=== PATIENT | female | born 1985 | race Caucasian/White ===

== ENCOUNTER 2017-05-05 20:40 | Inpatient (IN) ==
[2017-05-05 21:25] LABS: Bilirubin,Urine Negative (Negative); Blood,Urine Negative (Negative); Clarity,Urine Clear (Clear); Color,Urine Yellow (Yellow); Glucose,Urine (UA) >=1000 mg/dL (Normal); Ketones,Urine 40 mg/dL (Negative); Leukocyte Esterase,Urine Negative (Negative); Nitrite,Urine Negative (Negative); Protein,Urine Negative (Neg-Trace); Specific Gravity,Urine > 1.030 (1.010-1.025); Urobilinogen,Urine Normal (Normal)
[2017-05-05 21:25] LABS: Basophils % 0.1 %; Eosinophils % 0.1 %; Hematocrit 42.8 % (35.3-44.9); Hemoglobin 14.7 g/dL (11.5-15.4); Immature Granulocytes % 0.4 % (0-4); Lymphocytes # 2.3 K/mcL (0.6-4.6); Lymphocytes % 16.8 %; Mean Corpuscular HGB Conc 34.3 g/dL (31.6-35.5); Mean Corpuscular Hemoglobin 26.7 pg (28.0-33.3); Mean Corpuscular Volume 77.8 fL (83.0-100.0); Mean Platelet Volume 10.8 fL (9.4-12.4); Monocytes # 0.6 K/mcL (0.0-1.3); Monocytes % 4.5 %; Neutrophils # 10.8 K/mcL (1.6-8.9); Platelet Count 329 K/mcL (140-400); Red Cell Distribution Width 13.4 % (11.5-14.5); Segmented Neutrophils % 78.1 %
[2017-05-05 21:39] LABS: Alanine Aminotransferase 24 Units/L (0-55); Albumin 4.2 g/dL (3.5-5.0); Albumin/Globulin Ratio 1.3 (1.1-2.2); Alkaline Phosphatase 144 Units/L (38-126); Aspartate Amino Transferase 11 Units/L (5-34); BUN/Creatinine Ratio 18 (6-26); Bilirubin,Direct 0.2 mg/dL (0.0-0.5); Bilirubin,Indirect 0.5 mg/dL (0.0-1.2); Bilirubin,Total 0.7 mg/dL (0.2-1.2); Blood Urea Nitrogen 21 mg/dL (7-20); Calcium 10.2 mg/dL (8.6-10.8); Carbon Dioxide 19 mEq/L (19-29); Chloride 95 mEq/L (98-109); Globulin 3.2 g/dL (2.4-3.5); Lipase 17 Units/L (8-78); Osmolality,Calculated 309 (280-300); Potassium 4.2 mEq/L (3.5-4.5); Sodium 131 mEq/L (136-145); Total Protein 7.4 g/dL (6.0-8.3); eGFR For African Americans > 60 (> 60); eGFR For Non-African Americans 53 (> 60)
[2017-05-05 21:45] LABS: Glucose 712 mg/dL (70-99)
[2017-05-05] MEDS ORDERED: 0.9 % Sodium Chloride 1,000 ML IVC SCH (22:15)
[2017-05-05 22:51] LABS: VBG HCO3 19.8 mEq/L (21-27); VBG PH 7.36 pH Units (7.32-7.42)
--- NOTE | 2017-05-05 23:20 | Emergency Department Note ---
Disposition Clinical Impression: Urticaria, Hidradenitis DKA (diabetic ketoacidoses) Qualifiers: Diabetes mellitus type: due to underlying condition Diabetes mellitus complication detail: without coma Qualified Code(s): E08.10 - Diabetes mellitus due to underlying condition with ketoacidosis without coma Disposition: Admitted As Inpatient Condition: Good Time of Disposition: 05:28 General Adult HPI - General Chief complaint: ED General Medical Stated complaint: rash all over,heaviness on chest,cough,vomiting Time Seen by Provider: 05/05/17 22:12 Source: patient Limitations: no limitations Nursing Notes Reviewed: Yes Vital Signs Reviewed: Yes - History of Present Illness Pain Scale: 5 - Related Data Home Medications Medication Instructions Recorded Confirmed Ascorbic Acid/Vitamin E/Biotin 1 each PO DAILY 12/25/16 12/25/16 [Hair Skin Nails-Biotin Gummies] Biotin 1 mg PO DAILY 12/25/16 12/25/16 Melatonin 5 mg PO HS 12/25/16 12/25/16 Previous Rx's Medication Instructions Recorded Docusate [Colace] 100 mg PO BID #30 capsule 12/25/16 OxyCODONE/APAP 5/325 [Percocet 1 each PO Q4HR PRN #30 tablet 12/25/16 5/325 MG] Clindamycin [Cleocin] 450 mg PO TID #21 capsule 03/26/17 Clindamycin [Cleocin] 450 mg PO TID 7 Days 03/26/17 Cephalexin [Keflex] 500 mg PO QID #40 capsule 05/01/17 Mupirocin [Bactroban Oint] 1 appl TP BID #1 tube 05/01/17 Sulfamethoxazole/Trimeth DS 1 each PO BID #20 tablet 05/01/17 [Bactrim DS] Clindamycin [Cleocin] 300 mg PO Q6HR #56 capsule 05/04/17 Ondansetron ODT [Zofran ODT] 4 mg SL Q6HR PRN #14 tab.rapdis 05/04/17 predniSONE [PredniSONE] 60 mg PO DAILY #15 tablet 05/04/17 Allergies Allergy/AdvReac Type Severity Reaction Status Date / Time sulfamethoxazole Allergy Severe Rash Verified 05/06/17 05:05 [From Bactrim] trimethoprim [From Bactrim] Allergy Severe Rash Verified 05/06/17 05:05 bee venom protein (honey bee) Allergy See Verified 05/04/17 12:47 Comments tramadol AdvReac Vomiting Verified 05/04/17 12:47 All systems ED: reviewed and negative except as stated. Constitutional: Denies: fever, chills ENT ED: Denies: throat pain, congestion Cardiovascular: Denies: chest pain, palpitations, syncope Respiratory: Reports: wheezes. Denies: cough, dyspnea Gastrointestinal: Reports: nausea. Denies: abdominal pain, vomiting, diarrhea, hematemesis, melena, hematochezia Genitourinary: Denies: urgency, dysuria, frequency, hematuria Musculoskeletal: Denies: back pain, neck pain Integumentary: Denies: rash, abrasion, lesions Neurological: Denies: headache, weakness, numbness, paresthesias Hematological/Lymphatic: Reports: other (Polyuria polydipsia for 3 months.) Allergic/Immunologic: Reports: urticaria, itchy eyes Past Medical History - Past Medical History Attestation: Yes The following information was validated with the patient. 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 - Social History Smoking Status: Current every day smoker Smokeless Tobacco Status: No Alcohol use: Reports: rarely Drug use: Reports: marijuana Physical Exam - General Limitations: no limitations General appearance: alert, in no apparent distress - Head Head exam: atraumatic, normocephalic, normal inspection - Eye Eye exam: Present: normal appearance, PERRL, EOMI - ENT ENT exam: normal exam, normal oropharynx, mucous membranes moist - Neck Neck exam: Present: normal inspection, full ROM, trachea midline - Chest Chest inspection: Present: normal inspection, symmetric chest wall rise - Respiratory Respiratory exam: Present: wheezes. Absent: respiratory distress - Cardiovascular Cardiovascular exam: Present: regular rate, normal rhythm, normal heart sounds - Abdominal Exam Abdominal exam: Present: soft, Non-Tender. Absent: tenderness, distention, guarding, rebound, rigidity, normal bowel sounds, organomegaly - Extremities Exam Extremities exam: Present: normal inspection, full ROM, normal capillary refill. Absent: tenderness, pedal edema - Back Exam Back exam: Present: normal inspection, full ROM. Absent: tenderness, CVA tenderness (R), CVA tenderness (L) - Neurological Exam Neurological exam: Present: alert, oriented X3 - Psychiatric Psychiatric exam: Present: normal affect, normal mood - Skin Skin exam: Present: warm, dry, intact, erythema (Diffuse), other (Diffuse urticaria.) Course Course Narrative: Anxious female resting in bed. She has urticaria call over. States that this started several days ago. She was started on Bactrim and Keflex for hydradenitis suppurative. After she started this she noticed that she started getting very itchy and red. She was seen by another physician and given steroids. Initially helped however she has been taking Benadryl at home over the past night with no relief. She states she is very itchy at this time. Also complaining of some abdominal cramping. She also complains of a 3 month history of polyuria and polydipsia. Lab workup here showed the patient to be in DKA. Her pH is normal however she has 79 Of 17. Her blood glucoses over 700. She has never been diagnosed with diabetes before. She did have gestational diabetes however. Patient states that they have also changed her fabric softener and washing powder recently that she is unaware if this is possibly the cause of the urticaria. We will give patient IV Benadryl Solu- Medrol and Pepcid. We will also begin treatment of DKA. We will admit patient to the hospital for both of these. She is agreeable to this. - Reevaluation(s) Reevaluation #1: Patient responded well to duo neb as steroids Benadryl and Pepcid. She states she is no longer itching. She is agreeable to admission at this time. She has been ambulatory throughout the emergency department with no distress. Vital Signs Temperature 97.9 F 05/05/17 20:49 Pulse Rate 92 05/05/17 20:49 Respiratory Rate 18 05/05/17 20:49 Blood Pressure 142/89 05/05/17 20:49 O2 Sat by Pulse Oximetry 95 05/05/17 20:49 Temperature 97.9 F 05/06/17 03:56 Pulse Rate 100 05/06/17 03:56 Respiratory Rate 20 05/06/17 03:56 Blood Pressure 139/68 05/06/17 03:56 O2 Sat by Pulse Oximetry 94 05/06/17 03:56 Oxygen Delivery Oxygen Delivery Room Air Medical Decision Making - Medical Records Medical records reviewed: Yes I reviewed the patient's medical records. - Lab Data Lab results reviewed: Yes I reviewed the patient's lab results. Result diagrams: 05/06/17 03:10 05/06/17 03:55 Lab Results 05/05/17 05/05/17 05/05/17 Range/Units 21:05 21:05 21:14 WBC 13.8 H (4.3-11.1) K/mcL RBC 5.50 H (3.82-4.97) M/mcL Hgb 14.7 (11.5-15.4) g/dL Hct 42.8 (35.3-44.9) % MCV 77.8 L (83.0-100.0) fL MCH 26.7 L (28.0-33.3) pg MCHC 34.3 (31.6-35.5) g/dL RDW 13.4 (11.5-14.5) % Plt Count 329 (140-400) K/mcL MPV 10.8 (9.4-12.4) fL Immature Gran % 0.4 (0-4) % Seg Neutrophils % 78.1 % Lymphocytes % 16.8 % Monocytes % 4.5 % Eosinophils % 0.1 % Basophils % 0.1 % Neutrophils # 10.8 H (1.6-8.9) K/mcL Lymphocytes # 2.3 (0.6-4.6) K/mcL Monocytes # 0.6 (0.0-1.3) K/mcL Eosinophils # 0.0 (0.0-0.6) K/mcL Basophils # 0.0 (0.0-0.2) K/mcL VBG pH (7.32-7.42) pH Units VBG pCO2 (41-51) mmHg VBG pO2 (25-40) mmHg VBG HCO3 (21-27) mEq/L Sodium (136-145) mEq/L Potassium (3.5-4.5) mEq/L Chloride (98-109) mEq/L Carbon Dioxide (19-29) mEq/L BUN (7-20) mg/dL Creatinine (0.57-1.11) mg/dL Est GFR ( Amer) (> 60) Est GFR (Non-Af Amer) (> 60) BUN/Creatinine Ratio (6-26) Glucose (70-99) mg/dL Calculated Osmolality (280-300) Calcium (8.6-10.8) mg/dL Total Bilirubin (0.2-1.2) mg/dL Direct Bilirubin (0.0-0.5) mg/dL Indirect Bilirubin (0.0-1.2) mg/dL AST (5-34) Units/L ALT (0-55) Units/L Alkaline Phosphatase (38-126) Units/L Troponin I (0-0.03) ng/mL Serum Total Protein (6.0-8.3) g/dL Albumin (3.5-5.0) g/dL Globulin (2.4-3.5) g/dL Albumin/Globulin Ratio (1.1-2.2) Lipase (8-78) Units/L Beta-Hydroxybutyric Acd (0.02-0.27) mmol/L Urine Color Yellow (Yellow) Urine Clarity Clear (Clear) Urine pH 6.0 (5.0-8.0) pH Units Ur Specific [place] > 1.030 H (1.010-1.025) Urine Protein Negative (Neg-Trace) mg/dL Urine Glucose (UA) >=1000 H (Normal) mg/dL Urine Ketones 40 H (Negative) mg/dL Urine Blood Negative (Negative) Urine Nitrite Negative (Negative) Urine Bilirubin Negative (Negative) Urine Urobilinogen Normal (Normal) mg/dL Ur Leukocyte Esterase Negative (Negative) Ur Culture Indicated? NO (NO) Urine Test Negative (Negative) 05/05/17 05/05/17 05/05/17 Range/Units 21:14 21:14 21:14 WBC (4.3-11.1) K/mcL RBC (3.82-4.97) M/mcL Hgb (11.5-15.4) g/dL Hct (35.3-44.9) % MCV (83.0-100.0) fL MCH (28.0-33.3) pg MCHC (31.6-35.5) g/dL RDW (11.5-14.5) % Plt Count (140-400) K/mcL MPV (9.4-12.4) fL Immature Gran % (0-4) % Seg Neutrophils % % Lymphocytes % % Monocytes % % Eosinophils % % Basophils % % Neutrophils # (1.6-8.9) K/mcL Lymphocytes # (0.6-4.6) K/mcL Monocytes # (0.0-1.3) K/mcL Eosinophils # (0.0-0.6) K/mcL Basophils # (0.0-0.2) K/mcL VBG pH (7.32-7.42) pH Units VBG pCO2 (41-51) mmHg VBG pO2 (25-40) mmHg VBG HCO3 (21-27) mEq/L Sodium 131 L (136-145) mEq/L Potassium 4.2 (3.5-4.5) mEq/L Chloride 95 L (98-109) mEq/L Carbon Dioxide 19 (19-29) mEq/L BUN 21 H (7-20) mg/dL Creatinine 1.16 H (0.57-1.11) mg/dL Est GFR ( Amer) > 60 (> 60) Est GFR (Non-Af Amer) 53 L (> 60) BUN/Creatinine Ratio 18 (6-26) Glucose 712 H* (70-99) mg/dL Calculated Osmolality 309 H (280-300) Calcium 10.2 (8.6-10.8) mg/dL Total Bilirubin 0.7 (0.2-1.2) mg/dL Direct Bilirubin 0.2 (0.0-0.5) mg/dL Indirect Bilirubin 0.5 (0.0-1.2) mg/dL AST 11 (5-34) Units/L ALT 24 (0-55) Units/L Alkaline Phosphatase 144 H (38-126) Units/L Troponin I 0.00 (0-0.03) ng/mL Serum Total Protein 7.4 (6.0-8.3) g/dL Albumin 4.2 (3.5-5.0) g/dL Globulin 3.2 (2.4-3.5) g/dL Albumin/Globulin Ratio 1.3 (1.1-2.2) Lipase 17 (8-78) Units/L Beta-Hydroxybutyric Acd > 2.00 H (0.02-0.27) mmol/L Urine Color (Yellow) Urine Clarity (Clear) Urine pH (5.0-8.0) pH Units Ur Specific [place] (1.010-1.025) Urine Protein (Neg-Trace) mg/dL Urine Glucose (UA) (Normal) mg/dL Urine Ketones (Negative) mg/dL Urine Blood (Negative) Urine Nitrite (Negative) Urine Bilirubin (Negative) Urine Urobilinogen (Normal) mg/dL Ur Leukocyte Esterase (Negative) Ur Culture Indicated? (NO) Urine Test (Negative) 05/05/17 Range/Units 22:47 WBC (4.3-11.1) K/mcL RBC (3.82-4.97) M/mcL Hgb (11.5-15.4) g/dL Hct (35.3-44.9) % MCV (83.0-100.0) fL MCH (28.0-33.3) pg MCHC (31.6-35.5) g/dL RDW (11.5-14.5) % Plt Count (140-400) K/mcL MPV (9.4-12.4) fL Immature Gran % (0-4) % Seg Neutrophils % % Lymphocytes % % Monocytes % % Eosinophils % % Basophils % % Neutrophils # (1.6-8.9) K/mcL Lymphocytes # (0.6-4.6) K/mcL Monocytes # (0.0-1.3) K/mcL Eosinophils # (0.0-0.6) K/mcL Basophils # (0.0-0.2) K/mcL VBG pH 7.36 (7.32-7.42) pH Units VBG pCO2 35 L (41-51) mmHg VBG pO2 75 H (25-40) mmHg VBG HCO3 19.8 L (21-27) mEq/L Sodium (136-145) mEq/L Potassium (3.5-4.5) mEq/L Chloride (98-109) mEq/L Carbon Dioxide (19-29) mEq/L BUN (7-20) mg/dL Creatinine (0.57-1.11) mg/dL Est GFR ( Amer) (> 60) Est GFR (Non-Af Amer) (> 60) BUN/Creatinine Ratio (6-26) Glucose (70-99) mg/dL Calculated Osmolality (280-300) Calcium (8.6-10.8) mg/dL Total Bilirubin (0.2-1.2) mg/dL Direct Bilirubin (0.0-0.5) mg/dL Indirect Bilirubin (0.0-1.2) mg/dL AST (5-34) Units/L ALT (0-55) Units/L Alkaline Phosphatase (38-126) Units/L Troponin I (0-0.03) ng/mL Serum Total Protein (6.0-8.3) g/dL Albumin (3.5-5.0) g/dL Globulin (2.4-3.5) g/dL Albumin/Globulin Ratio (1.1-2.2) Lipase (8-78) Units/L Beta-Hydroxybutyric Acd (0.02-0.27) mmol/L Urine Color (Yellow) Urine Clarity (Clear) Urine pH (5.0-8.0) pH Units Ur Specific [place] (1.010-1.025) Urine Protein (Neg-Trace) mg/dL Urine Glucose (UA) (Normal) mg/dL Urine Ketones (Negative) mg/dL Urine Blood (Negative) Urine Nitrite (Negative) Urine Bilirubin (Negative) Urine Urobilinogen (Normal) mg/dL Ur Leukocyte Esterase (Negative) Ur Culture Indicated? (NO) Urine Test (Negative) - Radiology Data Radiology results reviewed: Yes I reviewed the patient's radiology results. Chest X-Ray 05/05/17 20:56 IMPRESSION: Middle lobe or lingular atelectasis versus pneumonia. D/ / Brandon Lawton MD / Brandon Lawton MD Interpreting Provider: Brandon Lawton MD Critical Care Time Critical Care Time: Yes Total Critical Care Time: 45 Attestation: Critical care performed: Time is exclusive of separately billable procedures. Time includes: direct patient care, patient reassessment, coordination of patient care, interpretation of data (laboratory data, radiology data, and respiratory data), review of patient's medical records, medical consultation and documentation of patient care. Procedures included in critical care time: Procedures excluded from critical care time: Attestation Statement - Attestation Attestation: IOsmany MD, personally evaluated this patient and discussed their management with the resident physician. I reviewed the resident's note and agree with the documented findings, medical decision making, and plan of care. 32-year-old female presents to the emergency department with a complaint that she was started on antibiotics on 05/01 for an abscess. On 05/03 she developed an allergic reaction with hives. She was seen here on 05/04 and was started on prednisone. She returns tonight complaining of continued rash and itching. She also however complains of some tightness in her throat and some shortness of breath. Some nausea and vomiting. Swelling of the lips tongue or face. Some chest pain. She also complains of polyuria and polydipsia for the past few months but getting progressively worse and especially worse over the past few days. She does have a history of gestational diabetes but otherwise is not a known diabetic. On examination patient is a well-developed well-nourished female in no acute distress. She is alert and oriented 3. There is no cyanosis or diaphoresis. Mucous membranes are moist. Neck is supple and nontender with no lymphadenopathy. Chest is nontender to palpation. Breath sounds are equal bilaterally with a few scattered bilateral inspiratory and expiratory wheezes. Heart regular rate and rhythm. Abdomen soft and nontender with normal bowel sounds. Labs reviewed. Glucose 712. Beta hydroxybutyric acid greater than 2.00. PH normal. We will treat as DKA inpatient started on insulin drip. The hospitalist, Dr. Villanueva, was consulted and accepted admission of the patient.
[2017-05-05] MEDS ORDERED: Famotidine 20 MG/2 ML VIAL IVP ONE (23:54)
[2017-05-05] MEDS ORDERED: methylPREDNISolone 125 MG/2 ML VIAL IVP ONE (23:54)
[2017-05-05] MEDS ORDERED: 0.9 % Sodium Chloride 1,000 ML IVC ONE (23:55)
[2017-05-05] MEDS ORDERED: Ipratropium/Albuterol Neb 3 ML IH ONE (23:58)
[2017-05-06] MEDS ORDERED: *HR* Dextrose 50 % in Water (Syg) 50 ML SYRINGE IVP PRN ×2 (00:07→02:32)
[2017-05-06] MEDS ORDERED: Insulin Human Regular 100 UNIT in 0.9 % Sodium Chloride 100 ML IVC SCH (00:15)
[2017-05-06] MEDS ORDERED: 0.9 % Sodium Chloride w KCl 20 MEQ/1,000 ML MLS IVC ONE ×2 (02:12→06:28)
[2017-05-06] MEDS ORDERED: Naloxone 0.4 MG/ML INJ IVP PRN (02:28)
[2017-05-06] MEDS ORDERED: Acetaminophen 325 MG TABLET PO PRN (02:28)
--- NOTE | 2017-05-06 02:28 | Internal Med History&Physical ---
<Zackery Hooper - Last Filed: 05/06/17 04:38> Date of Encounter: 05/06/17 Time of Encounter: 02:28 Assessment and Plan (1) DKA (diabetic ketoacidoses) Current visit: Yes Status: Acute Previous hx of gestational diabetes, but no other diagnosis of DM per patient. Recent history of increased thirst and frequent urination. Patient found to have glucose of 712 on presentation. Betahydroxybutyric positive, ketones in urine. VBG showed ph 7.36. Anion gap 17. Has recently been on steroids due to allergic reaction to abx prescribed for hidradenitis. DKA protocol with insulin drip and fluids until gap closes then switch to SQ insulin Check Hgb A1C Check c peptide Qualifiers: Diabetes mellitus type: due to underlying condition Diabetes mellitus complication detail: without coma Qualified Code(s): E08.10 - Diabetes mellitus due to underlying condition with ketoacidosis without coma (2) Allergic reaction Current visit: Yes Status: Acute Chronic hx of hidradenitis of bilateral axilla. Patient had I&D of axillary lesions on Sunday and prescribed Bactrim and Keflex. She took these medications daily and began developing diffuse erythematous rash, head to to itching on . Today, she began developing worsening symptoms of painful rash along with sensation of fullness in throat, dyspnea, N/V, abdominal cramping. Last dose of each of these medications was morning of 05/05/17. Patient was given benadryl 50mg, pepcid 20mg, duoneb x 1, solumedrol 125mg in ED. Stop bactrim and keflex Start Clindamycin 450 PO TID Benadryl IV 50 q8h Pepcid 20mg q12h Solumedrol 40mg q12h Dilaudid for pain control Qualifiers: Encounter type: initial encounter Qualified Code(s): T78.40XA - Allergy, unspecified, initial encounter (3) Urticaria Current visit: Yes Status: Acute See above (4) Hidradenitis Current visit: Yes Status: Acute Chronic hx of hidradenitis of bilateral axilla. See above Stop bactrim and keflex Start Clindamycin 450 PO TID (5) DVT prophylaxis Current visit: No Status: Acute EPCDs and ambulate as tolerated. Internal Medicine - H&P: HPI Chief complaint: rash/allergic reaction Admitted From: Emergency Dept Plans for Post Hospital Care: Home History of present illness: Ms. Mcmahan is a 32 year old female with PMHx of fibromyalgia, hypertension, kidney stones, PCOS with chronic abdominal pain and cramping, previous hx of diabetes but no other diagnosis of DM otherwise. Patient has a chronic hx of hidradenitis of bilateral axilla and had I&D of axillary lesions on Sunday and prescribed Bactrim and Keflex. She took these medications daily and began developing diffuse erythematous rash, head to to itching on . She came to ED on 05/04/17 and was prescribed steroids for itching/allergic reaction. Today, she began developing worsening symptoms of painful rash along with sensation of fullness in throat, lip and tongue swelling, dyspnea, N/V, abdominal cramping. Last dose of each of these medications was morning of . Patient presented to the ED where she was was given benadryl 50mg, pepcid 20mg, duoneb x 1, solumedrol 125mg in ED. Patient also reported a recent history of increased thirst and frequent urination over the past few weeks. She has a previous hx of gestational diabetes, but no other diagnosis of DM per patient. She has recently been on steroids due to allergic reaction to abx prescribed for hidradenitis. Patient was found to have glucose of 712 on ED workup. Betahydroxybutyric positive, ketones in urine. VBG showed ph 7.36. Anion gap 17. She was thus started on insulin drip in ED and then admitted for DKA and allergic reaction to antibiotics. Currently on my exam, patient complains of diffuse itching and burning from head to toe. Denies current shortness of breath, lip or tongue swelling, nausea , vomiting, chest pain. She does admit to midl abdominal cramping but states that it is very similar to all previous abdominal pain that she experiences with PCOS and abnormal menses. Past Med Surg Social Fam HX - Past Medical History Medical history: fibromyalgia, hypertension, kidney stones Psychiatric history: anxiety, bipolar, depression - Past Surgical History Surgical History: cholecystectomy - Social History Smoking Status: Current every day smoker Packs per day: 0.5 Smokeless Tobacco Status: No Alcohol use: rarely Drug use: marijuana - Family History Mother Living Status: Still Living Hx Family Cardiac Disorders: Yes Hx Family Cancer: Yes Hx Family Endocrine Disorder: Yes Father Living Status: Still Living Hx Family Cardiac Disorders: Yes Internal Medicine - H&P: Meds Ascorbic Acid/Vitamin E/Biotin [Hair Skin Nails-Biotin Gummies] 1 each PO DAILY 12/25/16 [History] Biotin 1 mg PO DAILY 12/25/16 [History] Mupirocin [Bactroban Oint] 1 appl TP BID #1 tube 05/01/17 [Rx] Clindamycin [Cleocin] 300 mg PO Q6HR #56 capsule 05/04/17 [Rx] Ondansetron ODT [Zofran ODT] 4 mg SL Q6HR PRN #14 tab.rapdis 05/04/17 [Rx] predniSONE [PredniSONE] 60 mg PO DAILY #15 tablet 05/04/17 [Rx] 3 Allergy/AdvReac Type Severity Reaction Status Date / Time sulfamethoxazole Allergy Severe Rash Verified 05/06/17 15:19 [From Bactrim] trimethoprim [From Bactrim] Allergy Severe Rash Verified 05/06/17 15:19 bee venom protein (honey bee) Allergy See Verified 05/06/17 15:19 Comments tramadol AdvReac Vomiting Verified 05/06/17 15:19 All Systems PM: A 10-system review of systems was performed and is negative for pertinent findings except as documented above in the HPI. - Constitutional Constitutional: fatigue, no fever(s), no lethargy - EENT Eyes: no change in vision Nose, mouth and throat: no nasal discharge, no sore throat - Cardiovascular Cardiovascular ROS IM: no chest pain - Respiratory Respiratory: dyspnea, wheezing, no cough, no stridor, no excessive phlegm production - Gastrointestinal Gastrointestinal: abdominal pain, cramping, loose stools (chronic), nausea, vomiting - Genitourinary Genitourinary: abnormal menses, urinary frequency - Musculoskeletal Musculoskeletal ROS IM: myalgias, no muscle weakness - Integumentary Integumentary IM: non-healing lesions, pruritus, rash - Neurological Neurological ROS: no numbness, no weakness - Endocrine Endocrine IM: fatigue, polydipsia, polyuria - Allergic/Immunologic Allergic/Immunologic: throat swelling, uticaria, wheezing, lip swelling - Constitutional Vitals: Temp Pulse Resp BP Pulse Ox 98.2 F 100 18 142/62 98 05/06/17 01:51 05/06/17 01:51 05/06/17 01:51 05/06/17 01:51 05/06/17 01:51 General appearance: Present: A&O X 3 Exam: anxious, scratching at arms and abdomen and reporting head to toe itching - Head Head exam: Present: atraumatic, normal inspection, normocephalic - Eye Eye exam: Present: PERRL, conjuntiva pink, sclera anicteric Pupils: Present: PERRL - ENT ENT exam: Present: mucous membranes dry - Neck Neck exam general surgery: Present: supple, trachea midline. Absent: lymphadenopathy - Respiratory Respiratory exam: Present: CTAB. Absent: accessory muscle use, rales, rhonchi, wheezes - Cardiovascular Cardiovascular exam: Present: RRR, +S1, +S2. Absent: diastolic murmur, gallop, rubs, systolic murmur - GI/Abdominal GI/Abdominal exam: Present: normal bowel sounds, soft, no peritoneal signs. Absent: distended, tenderness - Extremities Exam Extremities exam: Present: warm, radial pulses palpable and symmetrical. Absent : calf tenderness, cyanotic, pedal edema - Neurological Exam Neurological exam: Present: CN II-XII intact, oriented X3, no focal deficits. Absent: pronater drift, facial droop, speech deficit - Skin Skin exam: Present: dry, excoriation (dorsal aspects of bilateral hands from scratching), rash (diffuse erythematous papular rash on bilateral UE/hands, abdomen; flushed cheeks) Additional comments: hidradenitis lesions of bilateral axilla; no pus drainage appreciated, mild erythema surrounding each lesion Internal Med - H&P Results - Labs CBC & Chem 7: 05/06/17 03:10 05/06/17 03:55 <Stef Villanueva - Last Filed: 05/06/17 20:06> Date of Encounter: 05/06/17 Internal Medicine - H&P: HPI History of present illness: Ms. Mcmahan is a 32 year old female All Systems PM: A 10-system review of systems was performed and is negative for pertinent findings except as documented above in the HPI. - Constitutional Vitals: Temp Pulse Resp BP Pulse Ox 98.6 F 76 18 135/87 97 05/06/17 19:23 05/06/17 19:23 05/06/17 19:23 05/06/17 19:23 05/06/17 19:23 Internal Med - H&P Results - Labs CBC & Chem 7: 05/06/17 03:10 05/06/17 03:55 - Attending Attestation I examined this patient and my medical decision-making was reviewed with the Resident Physician, Dr Zackery Hooper. I agree with the documented findings, disposition and treatment plan as described except to the extent set forth below. My findings are summarized in the Event Note dictated earlier today.
[2017-05-06] MEDS ORDERED: Insulin LISPRO 300 UNITS/3 ML VIAL SQ PRN (02:32)
[2017-05-06] MEDS ORDERED: D5% in 0.45% NACL w KCl 20 MEQ/1,000 ML MLS IVC PRN (02:32)
[2017-05-06] MEDS ORDERED: 0.45 % Sodium Chloride w/KCl 20 MEQ/1,000 ML MLS IVC SCH (02:45)
[2017-05-06 03:24] LABS: Basophils % 0.2 %; Eosinophils % 0.1 %; Hematocrit 38.8 % (35.3-44.9); Hemoglobin 13.3 g/dL (11.5-15.4); Immature Granulocytes % 0.5 % (0-4); Lymphocytes # 1.7 K/mcL (0.6-4.6); Lymphocytes % 15.9 %; Mean Corpuscular HGB Conc 34.3 g/dL (31.6-35.5); Mean Corpuscular Volume 78.9 fL (83.0-100.0); Mean Platelet Volume 10.2 fL (9.4-12.4); Monocytes # 0.4 K/mcL (0.0-1.3); Monocytes % 3.9 %; Neutrophils # 8.5 K/mcL (1.6-8.9); Platelet Count 302 K/mcL (140-400); Red Blood Count 4.92 M/mcL (3.82-4.97); Red Cell Distribution Width 13.6 % (11.5-14.5); Segmented Neutrophils % 79.4 %
[2017-05-06] MEDS ORDERED: *HR* HYDROmorphone (PF) 1 MG/ML SYRINGE IVP PRN (04:02)
[2017-05-06 04:21] LABS: Alanine Aminotransferase 20 Units/L (0-55); Albumin 3.5 g/dL (3.5-5.0); Albumin/Globulin Ratio 1.3 (1.1-2.2); Alkaline Phosphatase 112 Units/L (38-126); Aspartate Amino Transferase 12 Units/L (5-34); BUN/Creatinine Ratio 20 (6-26); Blood Urea Nitrogen 15 mg/dL (7-20); Calcium 8.3 mg/dL (8.6-10.8); Carbon Dioxide 19 mEq/L (19-29); Chloride 105 mEq/L (98-109); Globulin 2.7 g/dL (2.4-3.5); Glucose 318 mg/dL (70-99); Magnesium 1.7 mg/dL (1.6-2.6); Osmolality,Calculated 293 (280-300); Phosphorous 2.6 mg/dL (2.3-4.7); Potassium 3.7 mEq/L (3.5-4.5); Sodium 135 mEq/L (136-145); Total Protein 6.2 g/dL (6.0-8.3); eGFR For African Americans > 60 (> 60); eGFR For Non-African Americans > 60 (> 60)
[2017-05-06 04:29] LABS: Bilirubin,Total < 0.3 mg/dL (0.2-1.2)
--- NOTE | 2017-05-06 04:34 | Event Note ---
Date of Encounter: 05/06/17 Time of Encounter: 04:26 I examined this patient and my medical decision-making was reviewed with the Resident Physician, Dr Zackery Hooper. I agree with the documented findings, disposition and treatment plan as described except to the extent set forth below. My findings are summarized below: Patient presented to the hospital for evaluation of skin rash. She also reports polyuria and polydipsia that has been present for the last 6 months. She has never been diagnosed with diabetes. She was recently treated with Keflex and Bactrim. She developed a generalized pruritic and painful skin rash. She came to the emergency department 2 days ago and was given Benadryl and prednisone and discharged home. Since then her rash did not improve and her thirst and polyuria increased. On exam she is in mild to moderate distress due to skin burning and itchiness and discomfort. Heart is tachycardic, lungs are clear, abdomen is soft. Laboratory data: Initial blood glucose greater than 720. Anion gap 17. Venous pH within normal limits. Urinalysis positive for ketone, negative for infection. Assessment: Type 1 diabetes with initial presentation with DKA exacerbated by a short course of oral steroids for a skin rash secondary to use of prescribed Bactrim for treatment of hydrosadenitis. Plan: Insulin drip, nothing by mouth, check hemoglobin A1c. Check C-peptide levels. We will treat the skin rash with IV Solu-Medrol and IV Benadryl. I advised smoking cessation and provided counseling. She is at high risk due to insulin drip which requires hourly blood glucose monitoring.
[2017-05-06 04:42] LABS: Hemoglobin A1C 11.4 %
[2017-05-06] MEDS ORDERED: Dextrose Gel 15 GM PO PRN ×2 (05:36)
[2017-05-06] MEDS ORDERED: D5% in Water 1,000 ML IVC PRN (05:36)
[2017-05-06] MEDS ORDERED: Insulin DETEMIR 100 UNIT/ML X5UNITS SQ SCH ×2 (06:07→09:00)
[2017-05-06] MEDS: Famotidine 20 MG/2 ML VIAL IVP SCH ×2 (06:11→16:13)
[2017-05-06] MEDS: MethylPREDNISolone 40 MG/ML VIAL IVP SCH ×2 (06:11→16:12)
[2017-05-06] MEDS: Insulin LISPRO 300 UNITS/3 ML VIAL SQ SCH ×5 (06:22→21:14)
[2017-05-06] MEDS: Insulin DETEMIR 100 UNIT/ML X5UNITS SQ SCH ×2 (07:37→21:12)
[2017-05-06] MEDS ORDERED: hydrOXYzine pamoate 25 MG CAPSULE PO ONE (08:49)
--- NOTE | 2017-05-06 12:52 | Internal Med Progress Note ---
Date of Encounter: 05/06/17 Time of Encounter: 09:00 - Assessment and plan (1) DKA (diabetic ketoacidoses) Current Visit: Yes Status: Acute Assessment and plan: Diabetes mellitus, type I, [id number], hyperglycemia - newly diagnosed - with DKA and without coma, now resolved - likely exacerbated due to recent steroid course Anion gap is now closed, IV insulin has been discontinued HbA1c - 11.4 Continue Levemir 10 units sq BID, insulin sliding scale and glucose checks Monitor closely, labs in a.m., anticipate discharge soon Patient will likely need to be discharged home with insulin Qualifiers: Diabetes mellitus type: due to underlying condition Diabetes mellitus complication detail: without coma Qualified Code(s): E08.10 - Diabetes mellitus due to underlying condition with ketoacidosis without coma (2) Urticaria Current Visit: Yes Status: Acute Assessment and plan: Allergic reaction secondary to Bactrim and Keflex use - erythematous rash and generalized itching - slowly improving Continue IV Benadryl as needed, IV Pepcid, Solu-Medrol IV, DuoNeb treatment Discontinue Bactrim and Keflex (3) Hidradenitis Current Visit: Yes Status: Acute Assessment and plan: Chronic history of hidradenitis bilateral axillae Continue clindamycin, patient had an allergic reaction to Bactrim and Keflex (4) Tobacco abuse Current Visit: Yes Status: Chronic Assessment and plan: Smoking cessation counseling, nicotine patch (5) DVT prophylaxis Current Visit: No Status: Acute Assessment and plan: Continue SCDs, ambulate - Time Spent With Patient 25 - 35 minutes - Subjective Interval history: Examined this morning. Patient is awake and alert. Not in any distress. Denies chest pain or shortness of breath. No fever. Hemodynamically stable. Tolerating oral diet. Complains of mild itching, likely due to an allergic reaction. She is on IV Benadryl as needed. No other acute events or complaints. Admitted for diabetic ketoacidosis. Anion gap is now closed. Patient is on insulin sliding scale and Levemir at this time. IV clindamycin continued for hidradenitis. Anticipate discharge soon. - Constitutional Vitals: Temp Pulse Resp BP Pulse Ox 98.0 F 93 18 117/88 96 05/06/17 11:07 05/06/17 11:07 05/06/17 11:07 05/06/17 11:07 05/06/17 11:07 General appearance: Present: cooperative, A&O X 3, pleasant, obese, answers questions appropriately - Head Head exam: Present: atraumatic - Eye Eye exam: Present: EOMI - ENT ENT exam: Present: mucous membranes moist - Respiratory Respiratory exam: Present: CTAB. Absent: rales, rhonchi, wheezes, tachypnea - Cardiovascular Cardiovascular exam: Present: RRR, +S1, +S2 - GI/Abdominal GI/Abdominal exam: Present: soft. Absent: distended, firm, guarding, tenderness - Extremities Exam Extremities exam: Present: radial pulses palpable and symmetrical. Absent: cyanotic, pedal edema - Neurological Exam Neurological exam: Present: alert, oriented X3, no focal deficits. Absent: facial droop, speech deficit - Skin Skin exam: Present: dry, excoriation (Dorsal aspect of both hands due to scratching), rash (Diffuse erythematous papular rash in both upper extremities and abdomen) Additional comments: Axillary hidradenitis, no pus drainage noted Internal Medicine: Result - Labs CBC & Chem 7: 05/06/17 03:10 05/06/17 03:55 Consult Discharge Plan - Plan Referrals: Chelsi Barkley DO [Primary Care Provider] -
[2017-05-06] MEDS: Ipratropium/Albuterol Neb 3 ML IH SCH ×2 (15:43→21:50)
[2017-05-06] MEDS: Nicotine 21 MG PATCH.TD24 TD SCH (16:13)
--- NOTE | 2017-05-06 18:15 | Electrocardiograph Report ---
[address] [place], [place] [address] Test Date: 2017-05-05 Pat Name: Deana Mcmahan Department: 105 Room: 2N02 Gender: F Top Cutter: : 1985 Requested By: Osmany Tran Order Number: [id number] Reading MD: Rocky Nagel MD Measurements Intervals [place] Rate: 105 P: 51 NE: 112 QRS: 18 QRSD: 90 T: 14 QT: 354 QTc: 415 Interpretive Statements SINUS TACHYCARDIA WITH SHORT NE INTERVAL Electronically Signed On 05-06-2017 18:13:25 EDT by Rocky Nagel MD
[2017-05-06] MEDS: Ketorolac 15 MG/ML VIAL IVP PRN (19:18)
[2017-05-06] MEDS: Melatonin 3 MG TABLET PO SCH (21:11)
[2017-05-07] MEDS: Ipratropium/Albuterol Neb 3 ML IH SCH ×4 (03:48→21:39)
[2017-05-07 04:06] LABS: BUN/Creatinine Ratio 16 (6-26); Blood Urea Nitrogen 16 mg/dL (7-20); Calcium 8.5 mg/dL (8.6-10.8); Carbon Dioxide 17 mEq/L (19-29); Chloride 103 mEq/L (98-109); Osmolality,Calculated 302 (280-300); Sodium 133 mEq/L (136-145); eGFR For African Americans > 60 (> 60); eGFR For Non-African Americans > 60 (> 60)
[2017-05-07 04:12] LABS: Potassium 3.8 mEq/L (3.5-4.5)
[2017-05-07 04:13] LABS: Glucose 537 mg/dL (70-99)
[2017-05-07] MEDS: Famotidine 20 MG/2 ML VIAL IVP SCH (04:40)
[2017-05-07] MEDS: MethylPREDNISolone 40 MG/ML VIAL IVP SCH (04:43)
[2017-05-07] MEDS ORDERED: Insulin Human Regular 12 UNIT in 0.9 % Sodium Chloride 10 ML IV ONE (05:07)
[2017-05-07] MEDS: Ketorolac 15 MG/ML VIAL IVP PRN (05:25)
[2017-05-07] MEDS ORDERED: Insulin LISPRO 300 UNITS/3 ML VIAL SQ SCH ×2 (07:59→13:41)
[2017-05-07] MEDS: Insulin LISPRO 300 UNITS/3 ML VIAL SQ SCH ×3 (09:00→18:41)
[2017-05-07] MEDS: Insulin DETEMIR 100 UNIT/ML X5UNITS SQ SCH ×2 (09:01→21:51)
[2017-05-07] MEDS ORDERED: 0.9 % Sodium Chloride 1,000 ML IVC SCH (12:15)
--- NOTE | 2017-05-07 12:42 | Internal Med Progress Note ---
Date of Encounter: 05/07/17 Time of Encounter: 08:55 - Assessment and plan (1) DKA (diabetic ketoacidoses) Current Visit: Yes Status: Acute Assessment and plan: Diabetes mellitus, type I, [id number], hyperglycemia - newly diagnosed - with DKA and without coma, now resolved - likely exacerbated due to recent steroid course IV insulin has been discontinued Continue Levemir 20 units sq BID, insulin sliding scale and glucose checks HbA1c - 11.4 Monitor closely, labs in a.m., anticipate discharge soon, patient can be transferred to medical floor today Patient will likely need to be discharged home with insulin Qualifiers: Diabetes mellitus type: due to underlying condition Diabetes mellitus complication detail: without coma Qualified Code(s): E08.10 - Diabetes mellitus due to underlying condition with ketoacidosis without coma (2) Urticaria Current Visit: Yes Status: Acute Assessment and plan: Allergic reaction secondary to Bactrim and Keflex use - erythematous rash and generalized itching - improving Continue IV Benadryl as needed, IV Pepcid, Solu-Medrol IV, DuoNeb treatment Discontinue Bactrim and Keflex (3) Hidradenitis Current Visit: Yes Status: Acute Assessment and plan: Chronic history of hidradenitis bilateral axillae Continue clindamycin, patient had an allergic reaction to Bactrim and Keflex (4) Tobacco abuse Current Visit: Yes Status: Chronic Assessment and plan: Smoking cessation counseling, nicotine patch (5) DVT prophylaxis Current Visit: No Status: Acute Assessment and plan: Continue SCDs, ambulate - Time Spent With Patient 25 - 35 minutes - Subjective Interval history: Examined this morning. Patient is awake and alert. Not in any distress. Denies chest pain or shortness of breath. No fever. Hemodynamically stable. Tolerating oral diet. Itching due to allergic reaction is present, but has improved. She is on IV Benadryl as needed. No other acute events or complaints. Admitted for diabetic ketoacidosis. Now improved. Patient continues to have elevated hyperglycemia. Patient is on insulin sliding scale and Levemir at this time. IV Clindamycin continued for hidradenitis. Patient can be transferred to medical floor. - Constitutional Vitals: Temp Pulse Resp BP Pulse Ox 98.1 F 85 18 124/80 91 05/07/17 11:49 05/07/17 11:49 05/07/17 11:49 05/07/17 11:49 05/07/17 11:49 General appearance: Present: cooperative, A&O X 3, pleasant, obese, answers questions appropriately - Head Head exam: Present: atraumatic - Eye Eye exam: Present: EOMI - ENT ENT exam: Present: mucous membranes moist - Respiratory Respiratory exam: Present: CTAB. Absent: rales, rhonchi, wheezes, tachypnea - Cardiovascular Cardiovascular exam: Present: RRR, +S1, +S2 - GI/Abdominal GI/Abdominal exam: Present: soft. Absent: distended, firm, guarding, tenderness - Extremities Exam Extremities exam: Present: radial pulses palpable and symmetrical. Absent: cyanotic, pedal edema - Neurological Exam Neurological exam: Present: alert, oriented X3, no focal deficits. Absent: facial droop, speech deficit Internal Medicine: Result - Labs CBC & Chem 7: 05/06/17 03:10 05/07/17 03:34 Labs: BMP 05/07/17 03:34 Sodium 133 L Potassium 3.8 Chloride 103 Carbon Dioxide 17 L BUN 16 Creatinine 0.98 Glucose 537 H* Calcium 8.5 L Consult Discharge Plan - Plan Referrals: Chelsi Barkley DO [Primary Care Provider] -
[2017-05-07 12:47] LABS: BUN/Creatinine Ratio 17 (6-26); Blood Urea Nitrogen 13 mg/dL (7-20); Calcium 8.3 mg/dL (8.6-10.8); Carbon Dioxide 22 mEq/L (19-29); Chloride 104 mEq/L (98-109); Glucose 390 mg/dL (70-99); Osmolality,Calculated 294 (280-300); Potassium 2.8 mEq/L (3.5-4.5); Sodium 134 mEq/L (136-145); eGFR For African Americans > 60 (> 60); eGFR For Non-African Americans > 60 (> 60)
[2017-05-07] MEDS ORDERED: 0.9 % Sodium Chloride w KCl 40 MEQ/1,000 ML MLS IVC SCH (13:45)
[2017-05-07] MEDS: Nicotine 21 MG PATCH.TD24 TD SCH (15:34)
[2017-05-07] MEDS: predniSONE 10 MG TABLET PO SCH (15:34)
[2017-05-07] MEDS: Famotidine 20 MG TABLET PO SCH (19:41)
[2017-05-07] MEDS: Melatonin 3 MG TABLET PO SCH (21:37)
[2017-05-08] MEDS: Ipratropium/Albuterol Neb 3 ML IH SCH ×2 (03:58→10:22)
[2017-05-08 05:43] LABS: BUN/Creatinine Ratio 16 (6-26); Blood Urea Nitrogen 11 mg/dL (7-20); Calcium 8.1 mg/dL (8.6-10.8); Carbon Dioxide 21 mEq/L (19-29); Chloride 111 mEq/L (98-109); Glucose 170 mg/dL (70-99); Osmolality,Calculated 289 (280-300); Potassium 3.6 mEq/L (3.5-4.5); Sodium 138 mEq/L (136-145); eGFR For African Americans > 60 (> 60); eGFR For Non-African Americans > 60 (> 60)
[2017-05-08] MEDS: Famotidine 20 MG TABLET PO SCH (05:44)
[2017-05-08] MEDS: Insulin LISPRO 300 UNITS/3 ML VIAL SQ SCH ×2 (08:08→11:06)
[2017-05-08] MEDS: predniSONE 10 MG TABLET PO SCH (08:11)
[2017-05-08] MEDS: Insulin DETEMIR 100 UNIT/ML X5UNITS SQ SCH (08:11)
[2017-05-08] MEDS ORDERED: Ibuprofen 600 MG TABLET PO ONE (10:44)
[2017-05-08 11:05] VITALS: BP 153/96
--- NOTE | 2017-05-08 11:20 | Discharge Summary ---
Date of Encounter: 05/08/17 Time of Encounter: 11:07 - Discharge Diagnosis (1) DKA (diabetic ketoacidoses) Priority: Primary Status: Resolved Qualifiers: Diabetes mellitus type: due to underlying condition Diabetes mellitus complication detail: without coma Qualified Code(s): E08.10 - Diabetes mellitus due to underlying condition with ketoacidosis without coma (2) Diabetes mellitus type 2 in obese Priority: Secondary Status: Chronic (3) DVT prophylaxis Priority: Secondary Status: Acute (4) Hidradenitis Priority: Secondary Status: Acute (5) Tobacco abuse Priority: Secondary Status: Chronic (6) Urticaria Priority: Secondary Status: Acute - Discharge Medications Prescriptions: DiphenhydraMINE [Benadryl] 25 mg PO Q6HR PRN #30 capsule PRN Reason: Allergic Reaction Famotidine [Pepcid] 20 mg PO Q12HR #10 tab Blood Sugar Diagnostic [Glucose Test Strip] 1 each ACHS #200 strip Blood-Glucose Meter [Accu-Chek [place] Connect] 1 each ACHS #1 each Insulin DETEMIR [Levemir Flextouch] 20 unit SQ BID #1 insuln.pen Insulin LISPRO [Humalog Kwikpen U-100] See Protocol SQ TIDAC #10 mls Lancets [Accu-Chek Safe-T-Pro] 1 each ACHS #200 each Pen Needle, Diabetic [Insulin Pen Needle] 1 each ACHS #120 dis.needle Home Medications: Ascorbic Acid/Vitamin E/Biotin [Hair Skin Nails-Biotin Gummies] 1 each PO DAILY 12/25/16 [History] Biotin 1 mg PO DAILY 12/25/16 [History] Mupirocin [Bactroban Oint] 1 appl TP BID #1 tube 05/01/17 [Rx] Clindamycin [Cleocin] 300 mg PO Q6HR #56 capsule 05/04/17 [Rx] Ondansetron ODT [Zofran ODT] 4 mg SL Q6HR PRN #14 tab.rapdis 05/04/17 [Rx] Blood Sugar Diagnostic [Glucose Test Strip] 1 each ACHS #200 strip 05/08/17 [ Rx] Blood-Glucose Meter [Accu-Chek [place] Connect] 1 each ACHS #1 each 05/08/17 [ Rx] DiphenhydraMINE [Benadryl] 25 mg PO Q6HR PRN #30 capsule 05/08/17 [Rx] Famotidine [Pepcid] 20 mg PO Q12HR #10 tab 05/08/17 [Rx] Insulin DETEMIR [Levemir Flextouch] 20 unit SQ BID #1 insuln.pen 05/08/17 [Rx] Insulin LISPRO [Humalog Kwikpen U-100] See Protocol SQ TIDAC #10 mls 05/08/17 [ Rx] Lancets [Accu-Chek Safe-T-Pro] 1 each ACHS #200 each 05/08/17 [Rx] Pen Needle, Diabetic [Insulin Pen Needle] 1 each ACHS #120 dis.needle [Rx] Allergies/Adverse Reactions: 3 Allergy/AdvReac Type Severity Reaction Status Date / Time sulfamethoxazole Allergy Severe Rash Verified 05/06/17 15:19 [From Bactrim] trimethoprim [From Bactrim] Allergy Severe Rash Verified 05/06/17 15:19 bee venom protein (honey bee) Allergy See Verified 05/06/17 15:19 Comments tramadol AdvReac Vomiting Verified 05/06/17 15:19 Date of admission: 05/06/17 04:22 Primary care physician: Chelsi Barkley DO Consults: 05/07/17 09:29 dietary consult [Consult to Nutrition] [CONS] Routine Comment: ADA EDUCATION. NEW DX DM. Consulting Provider: NUTRITION Reason for Dietary Consult: Diet Education 05/07/17 10:57 Consult to Account Development Associate [CONS] Stat Reason for SW Consult: dka. new dx diabetes. 05/08/17 10:26 Consult to Seamless Hosiery Knitter [CONS] Routine Comment: Reason for Consult: New DM. Discharged today. Discharging clinician: Reuben Daniel Anticipated date of discharge: 05/08/17 - Patient Status Disposition: Home, Self-Care Condition: Good Functional capacity at discharge: independent ambulation Overall status at discharge: patient is progressing back to baseline - Discharge Instructions Instructions: Insulin Detemir (Injection), Insulin Lispro (Injection), Diabetes Mellitus Type 2 in Adults (DC), Diabetes Mellitus Type 2 in Adults (GEN ) Follow Up With: Domenico Swan DO [Resident] - 05/14/17 10:20 am - Diet and Activity Activity: increase activity as tolerated Diet: diabetic diet, low salt diet Hospital course: Ms. Mcmahan is a 32 year old female patient with history of hidradenitis who has required antibiotics to treat episodes of acute infection was ER initially for acute allergic reaction to Bactrim and Keflex which she was prescribed as outpatient. To treat these symptoms, patient was given prednisone and discharged home initially. She returned the next day with continued rash, itching along with sensation of fullness in her throat with lip and tongue swelling and abdominal cramping. She was also reporting increased frequent urination for several weeks. Her blood sugars were found to be severely elevated at 712 and she also had an increased anion gap. As such she was diagnosed with diabetic ketoacidosis and urticaria/allergic reaction to antibiotics and started on treatment for that with intravenous insulin and DKA protocol along with Benadryl, Pepcid given nebs and Solu-Medrol. With this aggressive treatment plan, her symptoms improved. Her DKA has resolved. She had not previously been diagnosed with diabetes mellitus type 2 but did not have gestational diabetes in the past. She has not been on any medications for diabetes recently. Her blood sugars have remained elevated but better control during the rest of her hospitalization here. Her hemoglobin A1c is calculated at 11.4. Given these findings, she is now diagnosed with diabetes mellitus type 2. She was placed on insulin regimen to control her diabetes. Her rash has mostly subsided now and she is no longer having any swelling in her tongue or throat. She has completed a 5 day treatment course with steroids. At this time, she is stable to be discharged home on antihistamines as needed. She will follow up with her primary care provider for further management of her diabetes - Time Spent with Patient Total time spent providing and/or coordinating discharge services: Greater than 30 minutes (32) - Constitutional Vitals: Temp Pulse Resp BP Pulse Ox 100 F H 78 18 153/96 97 05/08/17 11:02 05/08/17 11:02 05/08/17 11:02 05/08/17 11:05/08/17 11:02 General appearance: Present: cooperative, A&O X 3, pleasant, obese, answers questions appropriately - Eye Eye exam: Present: EOMI, PERRL, conjuntiva pink, sclera anicteric - Neck Neck exam general surgery: Present: supple, trachea midline. Absent: lymphadenopathy - Respiratory Respiratory exam: Present: CTAB. Absent: accessory muscle use, rales, rhonchi, wheezes - Cardiovascular Cardiovascular exam: Present: RRR, +S1, +S2. Absent: diastolic murmur, gallop, rubs, systolic murmur - GI/Abdominal GI/Abdominal exam: Present: normal bowel sounds, soft, no peritoneal signs. Absent: distended, tenderness - Extremities Exam Extremities exam: Present: warm, radial pulses palpable and symmetrical. Absent : calf tenderness, cyanotic, pedal edema - Neurological Exam Neurological exam: Present: alert, CN II-XII intact, oriented X3, no focal deficits. Absent: facial droop, speech deficit - Skin Skin exam: Present: dry, intact
== END 2017-05-08 13:00 | disposition home or self-care (01) | DRG 420 ==
LOC: EMEROO 20:40 → 2NNU 20:40 → SUATTDRO 05-06 04:22 → 3ANU 05-07 16:06
PROVIDERS: ADMIT Internal Medicine; ATTEND Internal Medicine